=== PATIENT | female | born 1985 | race Hispanic/Latino ===

== ENCOUNTER 2018-04-29 22:35 | Inpatient (IN) | payer MEDICAID ==
[2018-04-29 23:06] VITALS: BMI 25.6
[2018-04-29] MEDS ORDERED: NS / Oxytocin 40 units/1000ml 1,000 ML IV PRN (23:38)
[2018-04-29] MEDS ORDERED: Acetaminophen 500 MG TAB PO PRN (23:38)
[2018-04-29] MEDS ORDERED: Carboprost 250 MCG/ML AMP IM PRN (23:38)
[2018-04-29] MEDS ORDERED: Ibuprofen 800 MG TAB PO PRN (23:38)
[2018-04-29] MEDS ORDERED: Diphenoxylate HCl/Atropine Tablet PO PRN (23:38)
[2018-04-29] MEDS ORDERED: Methylergonovine 0.2 MG/ML VIAL IM PRN (23:38)
[2018-04-29] MEDS ORDERED: Butorphanol Tartrate 1 MG/ML VIAL SLOW IVP PRN (23:38)
[2018-04-29] MEDS ORDERED: Ondansetron PF 4 MG/2 ML Vial IVP PRN (23:38)
[2018-04-29] MEDS ORDERED: Promethazine HCl 25 MG/ML VIAL IM PRN (23:38)
[2018-04-29] MEDS ORDERED: Lidocaine 1% (PF) 30 ML VIAL SC PRN (23:38)
[2018-04-29] MEDS ORDERED: Misoprostol 200 MCG TAB PR PRN (23:38)
[2018-04-29] MEDS ORDERED: Lactated Ringer's 1,000 ML IV SCH (23:45)
--- NOTE | 2018-04-29 23:46 | PDOC.LDHP ---
Labor and Delivery H&P Chief complaint: contractions HPI: 33 yo @ 39.5 by 14.1 wk sono presents for contractions. She was seen at [facility] today when her contractions started, said cervical dilation was 4 at that time. Contractions continued to increase throughout day. No LOF. Minimal "burgandy" vaginal bleeding. Normal clear vaginal discharge. Feels movement. Current gestational age (weeks): 39 Due date: 05/01/18 Dating criteria: first trimester ultrasound (14.1 wk) Grav: 3 Para: 1 (1011) Current complications: none Abnormal US findings: Yes (marginal cord insertion on 21 wk sono) Past Medical History: None Current medications: pre- vitamins Previous surgical history: none Allergies/Adverse Reactions: Allergies Allergy/AdvReac Type Severity Reaction Status Date / Time No Known Allergies Allergy Unverified 04/29/18 22:57 Social history: none - Physical Exam Vital signs reviewed and normal: yes General: breathing through contractions Heart: RRR Lungs: nonlabored breathing Abdomen: gravid Extremeties: no edema FHT: category 1 (130/mod/+accel/no decel) [place] contractions every: 2-3 min - Vaginal Exam cm dilated: 5 Effacement: 100% - OB Labs Blood type: O RH: positive Antibody Screen: negative HIV: negative RPR: negative HEPSAg: negative GBS: negative Urine drug screen: not done Rubella: immune Additional Labs: H&H - Assessment L&D Assessment: term patient in labor - Plan Plan: admit to L&D, anesthesia consult for pain management -: Term IUP - EDC 05/01/18 - painful ctx q2-3min, RAMÍREZ - 5/C/bulging bag @ 2300 - GBS negative - desires epidural Anemia of - last H&H (02/04/18) Marginal cord insertion - noted on 2T ultrasound. Patient says she had repeat ultrasound on 04/22 and they said everything was normal. Report not in record. Hx of LGA baby (9.5 lbs) AMA - negative maternity 21 Dispo: admit to L&D Addendum - Attending - Attending Attestation Date/Time: 04/30/18 0517 I personally evaluated the patient and discussed the management with Dr. Philip. I agree with the History, Examination, Assessment and Plan documented above.
[2018-04-30 00:01] LABS: Hemoglobin 10.8 g/dL (12.0-16.0); Mean Corpuscular HGB CONC 32.9 g/dL (32.0-36.0); Mean Corpuscular Hemoglobin 27.3 pg (27.0-31.0); Mean Platelet Volume 10.2 fL (7.4-10.4); Platelet Count 191 thou/uL (130-400); RBC Distribution Width 14.3 % (11.5-14.5); Red Blood Cell (RBC) Count 3.97 mill/uL (4.20-5.40); White Blood Cell (WBC) Count 8.1 thou/uL (4.8-10.8)
[2018-04-30] MEDS ORDERED: Fentanyl 4 mcg/Bup 0.1% Cadd 100 ML ONE (00:22)
[2018-04-30 00:40] LABS: Syphilis Antibody Nonreactive (Nonreactive); Syphilis Antibody Index 0.03 S/CO (<1.00 Non-Reactive)
[2018-04-30] MEDS ORDERED: Lidocaine 1.5% w/Epi 1:200K 30 ML VIAL (Epid Use) ONE (00:42)
[2018-04-30 01:25] LABS: HBSAg Index 0.18 S/CO (0-0.99); Hep B Surf Ag Non-Reactive S/CO (NonReactive)
[2018-04-30] MEDS ORDERED: Lidocaine 1% (PF) 30 ML VIAL ONE (02:24)
[2018-04-30] MEDS ORDERED: NS / Oxytocin 40 units/1000ml 1,000 ML ONE (02:24)
--- NOTE | 2018-04-30 02:31 | PDOC.LDPN ---
Labor & Delivery Progress Note - Subjective Subjective: vaginal pressure - Objective Vital signs reviewed and normal: yes General: breathing through contractions Dilation: 10 Effacement: 0% Station: 1+ FHT: category 1 (130/mod/+accel/no decel) [place] contractions every: 2 min Plan: continue plan of care -: Term IUP - EDC 05/01/18 - ctx q2-3min, Kin[place] strip - 5/C/bulging bag @ 2300 - 7/100/-1 @ 0130 - 10/100/+1 @ 0230 - GBS negative - epidural in place - plan to prepare for delivery Anemia of - last H&H (02/04/18) 9.7 Marginal cord insertion - noted on 2T ultrasound. Patient says she had repeat ultrasound on 04/22 and they said everything was normal. Report not in record. Hx of LGA baby (9.5 lbs) AMA - negative maternity 21
[2018-04-30] MEDS ORDERED: Hydrocerin (Eucerin) Cream 120 gm Jar TOP PRN (03:05)
[2018-04-30] MEDS ORDERED: Acetaminophen 325 MG TAB PO PRN (03:05)
[2018-04-30] MEDS ORDERED: Promethazine HCl 25 MG/ML VIAL IM PRN (03:05)
[2018-04-30] MEDS ORDERED: Naloxone HCl 0.4 mg/ml Vial IVP PRN ×2 (03:05)
[2018-04-30] MEDS ORDERED: diphenhydrAMINE 50 MG/ML VIAL IVP PRN (03:05)
[2018-04-30] MEDS ORDERED: ePHEDrine/0.9% NaCl/PF SYRINGE 50 mg/10 ml SLOW IVP PRN (03:05)
[2018-04-30] MEDS ORDERED: Lactated Ringer's 500 ML IV PRN (03:05)
[2018-04-30] MEDS ORDERED: Ondansetron PF 4 MG/2 ML Vial IVP PRN (03:05)
[2018-04-30] MEDS ORDERED: Communication Order-Pharmacy FS SCH (03:15)
[2018-04-30] MEDS ORDERED: Fentanyl 4 mcg/Bupivacaine 0.1% Cassette 100 ML EPIDURAL SCH (03:15)
--- NOTE | 2018-04-30 03:34 | PDOC.OPDEL ---
OB Operative/Delivery Note Delivery Dr/Surgeon: Jeferson/Candace Pre-Delivery Diagnosis: active labor Procedure/Post Delivery Dx: spontaneous vaginal delivery Weeks gestation: 39 Anesthesia: epidural - Additional Findings/Plan Placenta delivered: spontaneous Repaired Obstetrical Laceration: none Estimated blood loss: 426 mL Compilations/Other Findings: Delivering Physician: Jeferson Attending: Candace Procedure: Spontaneous Vaginal Delivery Anesthesia: epidural QBL: 426 ml Pre-op Diagnosis: 1. Term intrauterine in labor 2. Anemia of 3. AMA 4. Marginal cord insertion Post-op Diagnosis: 1. Term intrauterine , delivered 2. same as above Indications: A 33y/o female presents in active labor Delivery Note: This is 33yo F @ 39.6 wks who delivered a viable M infant at 0307 on 04/30/18. Following an uneventful antepartum course, a vigorous M was delivered over an intact perineum in the OA position. Anterior Shoulder and then remainder of the body delivered. No nuchal cord. The head was held down and mouth and nares were bulb suctioned. Cord clamped after delayed cord clamping and cut and cord blood collected. Placenta delivered intact in the [place] presentation with a 3 vessel cord noted. Fundal massage was performed and the fundus was firm. The cervix and vagina were inspected and found to be free of lacerations. Infant went to nursery in good condition for routine care. Apgars were 8/9 at 1 & 5 minutes, respectively. Patient tolerated delivery well and went to after routine recovery/ care. Post delivery plan: routine recovery Addendum - Attending - Attending Attestation Date/Time: 04/30/18 0536 I was present for the entire delivery. Jewel
[2018-04-30] MEDS ORDERED: Methylergonovine 0.2 MG/ML VIAL IM PRN (05:46)
[2018-04-30] MEDS ORDERED: Preparation H Ointment 28 GM TUBE PR PRN (05:46)
[2018-04-30] MEDS ORDERED: NS / Oxytocin 40 units/1000ml 1,000 ML IV SCH (05:46)
[2018-04-30] MEDS ORDERED: Lanolin Ointment 7 GM TUBE TOP PRN (05:46)
[2018-04-30] MEDS ORDERED: Adacel (T-DAP) 0.5 ML SYRINGE IM ONE (05:46)
[2018-04-30] MEDS ORDERED: Bisacodyl 10 MG SUPP PR PRN (05:46)
[2018-04-30] MEDS ORDERED: Milk Of Magnesia 30 ML UDCUP PO PRN (05:46)
[2018-04-30] MEDS ORDERED: Misoprostol 200 MCG TAB VAG PRN (05:46)
[2018-04-30] MEDS ORDERED: Benzocaine/Menthol 20-0.5% 60 ML CAN TOP PRN (05:46)
[2018-04-30] MEDS: Docusate Calcium (SURFAK) 240 MG CAP PO SCH ×2 (08:41→22:13)
[2018-04-30] MEDS: Prenatal Vitamin 1 TAB PO SCH (08:41)
[2018-04-30] MEDS: Ibuprofen 800 MG TAB PO SCH ×3 (08:41→22:13)
[2018-04-30] MEDS: Ferrous Sulfate 325 MG TAB PO SCH ×2 (10:11→17:47)
[2018-04-30] MEDS ORDERED: Bupivacaine HCl 0.5%/Epinephrine 1:200,000/PF 30 ml Vial ONE (11:11)
[2018-05-01] MEDS: Ibuprofen 800 MG TAB PO SCH ×3 (05:42→21:39)
--- NOTE | 2018-05-01 06:34 | PDOC.PP ---
Post Progress Note Post Day #: 1 Subjective: Denies abdominal pain or excessive bleeding. Co-sleeping with . Discussed importance of not co-sleeping. PO intake tolerated: yes Flatus: yes Ambulation: yes Vital Signs (12 hours) Temp Pulse Resp BP Pulse Ox 05/01/18 00:25 97.6 F 70 16 115/75 04/30/18 19:35 97.8 F 73 18 106/62 97 Weight Weight 69.853 kg - Physical Examination General: NAD Cardiovascular: no m/r/g, RRR Respiratory: clear to auscultation bilaterally, non-labored breathing Abdominal: + bowel sounds, lochia, no distention, appropriately TTP Fundus firm & at: 3 cm below umbilicus Extremities: negative homans (B) Perineum: minimal swelling Neurological: no gross focal deficits Psychiatric: A&Ox3, normal affect Result Diagrams: 04/29/18 23:36 Additional Labs: Post Labs Blood Type O POSITIVE 04/29/18 23:36 Hep Bs Antigen Non-Reactive S/CO (NonReactive) 04/29/18 23:36 (1) Term delivered Code(s): O80 - ENCOUNTER FOR FULL-TERM UNCOMPLICATED DELIVERY Status: Acute - Assessment/Plan 1. TIUP delivered - routine care - No concerns - Infant requires additional day of hospitalization to monitor bilirubin so will keep and observe mother today. Dispo: D/C tomorrow.
[2018-05-01] MEDS: Docusate Calcium (SURFAK) 240 MG CAP PO SCH ×2 (08:14→21:39)
[2018-05-01] MEDS: Prenatal Vitamin 1 TAB PO SCH (08:14)
[2018-05-01] MEDS: Ferrous Sulfate 325 MG TAB PO SCH ×2 (08:15→17:49)
[2018-05-02] MEDS: Ibuprofen 800 MG TAB PO SCH (05:41)
--- NOTE | 2018-05-02 06:46 | PDOC.PP ---
Post Progress Note Post Day #: 2 Subjective: minimal pain. Denies PARNELL, scotoma, or SOB. ready to go home. PO intake tolerated: yes Flatus: yes Ambulation: yes Vital Signs (12 hours) Temp Pulse Resp BP Pulse Ox 05/01/18 20:00 98 F 71 16 127/75 100 Weight Weight 69.853 kg - Physical Examination General: NAD Cardiovascular: no m/r/g, RRR Respiratory: clear to auscultation bilaterally, non-labored breathing Abdominal: + bowel sounds, lochia, no distention, appropriately TTP Fundus firm & at: 2 cm below umbilicus Extremities: negative homans (B) Neurological: no gross focal deficits Psychiatric: A&Ox3, normal affect Result Diagrams: 04/29/18 23:36 Additional Labs: Post Labs Blood Type O POSITIVE 04/29/18 23:36 Hep Bs Antigen Non-Reactive S/CO (NonReactive) 04/29/18 23:36 (1) Term delivered Code(s): O80 - ENCOUNTER FOR FULL-TERM UNCOMPLICATED DELIVERY Status: Acute - Assessment/Plan 1. TIUP delivered - routine care - No concerns - f/u 2 wk at [facility]. Dispo- d/c today.
[2018-05-02 07:37] VITALS: BP 113/64; TEMP 98.4
[2018-05-02] MEDS: Docusate Calcium (SURFAK) 240 MG CAP PO SCH (09:43)
[2018-05-02] MEDS: Prenatal Vitamin 1 TAB PO SCH (09:43)
[2018-05-02] MEDS: Ferrous Sulfate 325 MG TAB PO SCH (09:43)
== END 2018-05-02 12:30 | disposition home or self-care (01) | DRG 807 ==
LOC: L&D/OP 22:35 → L&D 23:55 → 3SW 04-30 05:58
PROVIDERS: ADMIT Obstetrics & Gynecology; ATTEND Obstetrics & Gynecology
PROC: 10E0XZZ Delivery of Products of Conception, External Approach (ICD-10-PCS; principal; 2018-04-30)
DX: O99.02 Anemia complicating childbirth (principal); Z37.0 Single live birth; D64.9 Anemia, unspecified; Z3A.39 39 weeks gestation of pregnancy
CPT/HCPCS: 51702; 85027; 86780; 86850; 86900; 86901; 87340; 99285; J0670; J2001